=== PATIENT | male | born 1985 | race Caucasian/White ===

== ENCOUNTER 2021-07-16 10:03 | Outpatient (CLI) | payer OTHER, SELFPAY ==
--- NOTE | 2021-07-16 09:30 | DI.RAD_ITS ---
Exam(s) XR FEMUR RT EXAM: XR FEMUR RT CLINICAL HISTORY: eval R thigh pain, h/o osteochondromas. TECHNIQUE: 2D digital imaging was performed of the right femur. Four images were obtained. AP and l ateral views were obtained. COMPARISON: MR MRI - R LOWER EXT WO CONT from 08/26/2016 FINDINGS: BONES: No acute fracture is present. No bony destructive lesion is seen. The superior aspect of the p atient's known osteochondroma arising from the posterior aspect of the proximal tibia is seen. SOFT TISSUE: Normal. IMPRESSION: 1. Unremarkable radiographs of the right femur. 2. The superior most aspect of the patient's proximal tibial osteochondroma is visualized. DATA REPOSITORY: RADIATION DOSE DELIVERED:
--- NOTE | 2021-07-16 09:30 | DI.RAD_ITS ---
Exam(s) XR HIP RT COMPLETE AP PELVIS EXAM: XR HIP RT COMPLETE AP PELVIS CLINICAL HISTORY: eval R thigh pain, h/o osteochondromas. TECHNIQUE: 2D digital imaging was performed of the right hip. Two images were obtained. AP pelvis a nd lateral right hip views were obtained. COMPARISON: No exams were available for comparison FINDINGS: BONES: No acute fracture is present. No bony destructive lesion is seen. JOINTS: No dislocation present. Tiny old well corticated osseous densities are seen adjacent to the a cetabuli bilaterally. SOFT TISSUE: Normal. IMPRESSION: No acute abnormality. DATA REPOSITORY: RADIATION DOSE DELIVERED:
== END 2021-07-16 10:04 | disposition home or self-care (01) ==
LOC: DIORS 10:04
PROVIDERS: PCP Family Medicine; Referring Provider Family Medicine; Visit Provider Student in an Organized Health Care Education/Training Program
DX: M79.651 Pain in right thigh (principal); D16.21 Benign neoplasm of long bones of right lower limb
CPT/HCPCS: 73552; 73502